=== PATIENT | female | born 1970 | race Caucasian/White ===

== ENCOUNTER → 2023-12-24 08:57 | Outpatient (REF) | payer BC, SELFPAY | LOC: RCS 08:57 | PROVIDERS: ATTENDING PHYSICIAN Internal Medicine | DX: I10 Essential (primary) hypertension (principal); Z82.79 Family history of other congenital malformations, deformations and chromosomal abnormalities; Z82.49 Family history of ischemic heart disease and other diseases of the circulatory system | CPT/HCPCS: 93306 ==

== ENCOUNTER → 2024-01-06 16:52 | Outpatient (REF) | payer SELFPAY | LOC: RAD 16:52 | PROVIDERS: ATTENDING PHYSICIAN Internal Medicine | DX: I10 Essential (primary) hypertension (principal); E78.2 Mixed hyperlipidemia; Z82.79 Family history of other congenital malformations, deformations and chromosomal abnormalities | CPT/HCPCS: 75571 ==

== ENCOUNTER → 2024-01-18 17:49 | Outpatient (REF) | payer BC, SELFPAY | LOC: WDC 17:49 | PROVIDERS: ATTENDING PHYSICIAN Internal Medicine; FAMILY PHYSICIAN Obstetrics & Gynecology Gynecology | DX: Z12.31 Encounter for screening mammogram for malignant neoplasm of breast (principal) | CPT/HCPCS: 77063; 77067 ==

== ENCOUNTER 2024-08-02 07:32 | Emergency (ER) | payer BC, SELFPAY ==
[2024-08-02 07:33] VITALS: BP 162/88
--- NOTE | 2024-08-02 07:55 | ED.SKININJ ---
HPI-Injury
General
Chief Complaint: Skin Surface Trauma
Source: patient
Exam Limitations: none
Time Seen by Provider: 08/02/24 07:37
History of Present Illness-Injury
Initial Injury comments:
53-year-old female presents with laceration to the left thumb she sustained last evening. She was using a knife to cut a cake and cut her thumb. She presents this morning as she has been unable to get it to stop bleeding. Last tetanus unknown.
She denies numbness or tingling or loss of function
Phy Exam
Physical Exam
Physical Exam:
General: Well-appearing female no acute distress
Skin: 1 cm superficial laceration dorsal aspect left thumb not currently bleeding. No tendon involvement.
Musculoskeletal exam: Good range of motion left thumb
Neurologic: Good sensation left thumb
Course
Orders/Labs/Results
Orders:
Orders
08/02/24 07:54
Tetanus/Diphth/Acelpertussis [Adacel] 0.5 ml IM .ONCE ONE
Vital Signs
Initial and Last Documented VS:
Initial Vital Signs
Temp Pulse Resp BP Pulse Ox
98.1 F 82 16 162/88 98
08/02/24 07:33 08/02/24 07:33 08/02/24 07:33 08/02/24 07:33 08/02/24 07:33
Last Documented Vital Signs
Temp Pulse Resp BP Pulse Ox
98.1 F 82 16 162/88 99
08/02/24 07:33 08/02/24 07:33 08/02/24 07:33 08/02/24 07:33 08/02/24 08:30
MDM/Problems Addressed
Differential Diagnosis Includes:
Superficial laceration left thumb. Wound care options were discussed with patient. Considered sutures however not indicated at this time given approximation of wound and current hemostasis. Did apply several layers of skin and he is Dermabond to
keep it closed. A dressing was then applied. Tetanus vaccine updated
*Critical Care Note
Total Time (30-74mins, 75-104mins- exclusive of procedures): Not Applicable
ED Attending Note
-
Portions of this chart may have been created with voice recognition software.� Occasional wrong word or��sound alike� substitutions may have occurred due to the inherent limitations of voice recognition software.
Discharge Plan
Departure
Patient Disposition: Home (Routine Discharge)
Date of Disposition: 08/02/24
Time of Disposition: 07:57
Patient with high blood pressure during this ER visit?: No
Discharge Problem:
Laceration
Instructions: Laceration Repair With Glue (DC)
Prescriptions:
No Action
tamsulosin [Flomax] 0.4 mg capsule
0.4 mg PO DAILY Qty: 14 0RF
multivitamin Tablet
1 tab PO DAILY
ibuprofen [Advil] 200 mg Tablet
400 mg PO PRN PRN (Reason: PAIN)
lisinopril 5 mg Tablet
5 mg PO DAILY
cholecalciferol (vitamin D3) [Vitamin D3] 50 mcg (2,000 unit) Tablet
2,000 unit PO DAILY
Qulipta 60 mg Tablet
60 mg PO DAILY
Migraine Support
1 cap PO DAILY
Activity Restrictions/Additional Instructions:
Keep dry for 24 hours. The glue will dissolve on its own. Return if needed otherwise
Interventions
Interventions:
*Risk Screen - Suicide Last Done: 08/02/24 07:33
*General Assessment Last Done: 08/02/24 08:13
*Neglect/Abuse Screening Last Done: 08/02/24 08:20
ED- Fall Risk Assessment Last Done: 08/02/24 08:13
*ED COVID-19 Vaccine History Last Done: 08/02/24 08:13
*Nursing Disposition Last Done: 08/02/24 08:30
ED-Skin Assessment Last Done: 08/02/24 08:08
Discharge Date and Time
Discharge Date/Time: 08/02/24 08:30
Print Language: PARAGUAYAN
[2024-08-02] MEDS: ADACEL 0.5 ML IM (08:22)
== END 2024-08-02 08:30 | disposition home or self-care (01) ==
LOC: EMR 07:32
PROVIDERS: EMERGENCY PHYSICIAN Emergency Medicine; FAMILY PHYSICIAN Internal Medicine
DX: S61.012A Laceration without foreign body of left thumb without damage to nail, initial encounter (principal); W26.0XXA Contact with knife, initial encounter; Z23 Encounter for immunization
CPT/HCPCS: 99282; 12001; 90471; 90715

== ENCOUNTER → 2025-03-06 18:12 | Outpatient (REF) | payer BC, SELFPAY | LOC: WDC 18:12 | PROVIDERS: ATTENDING PHYSICIAN Obstetrics & Gynecology Gynecology; FAMILY PHYSICIAN Internal Medicine | DX: Z12.31 Encounter for screening mammogram for malignant neoplasm of breast (principal) | CPT/HCPCS: 77063; 77067 ==

== ENCOUNTER → 2025-05-16 16:06 | Outpatient (REF) | payer BC, SELFPAY | LOC: MRI 3T 16:06 | PROVIDERS: ATTENDING PHYSICIAN Orthopaedic Surgery; FAMILY PHYSICIAN Internal Medicine | DX: M25.511 Pain in right shoulder (principal) | CPT/HCPCS: 73221 ==

== ENCOUNTER → 2025-10-10 19:54 | Outpatient (REF) | payer BC, SELFPAY | LOC: MRI 19:54 | PROVIDERS: ATTENDING PHYSICIAN Orthopaedic Surgery; FAMILY PHYSICIAN Internal Medicine | DX: M25.551 Pain in right hip (principal) | CPT/HCPCS: 73721 ==